=== PATIENT | female | born 1960 | race Caucasian/White ===

== ENCOUNTER → 2024-05-05 | Outpatient (CLI) | payer MEDICARE, SELFPAY ==
--- NOTE | 2024-05-05 13:43 | XR_ITS ---
Examination: Lumbar spine, 5 views Technique: Lumbar spine AP, lateral, coned lateral lower lumbar spine, bilateral obliques 5 views Exam date and time: May 05, 2023 1403 hours INDICATIONS: Low back pain several years radiating down both legs FINDINGS: Adequate alignment lumbar vertebral bodies No lumbar fracture No spondylolisthesis Mild to moderate lumbar disc narrowing, most prominent L2-L3, L5-S1 IMPRESSION: No lumbar fracture Mild to moderate lumbar disc narrowing
== END | disposition home or self-care (01) ==
LOC: CDIM 13:34
PROVIDERS: PCP Internal Medicine; Referring Provider Internal Medicine; Visit Provider Internal Medicine
DX: M48.061 Spinal stenosis, lumbar region without neurogenic claudication (principal)
CPT/HCPCS: 72110

== ENCOUNTER → 2024-11-28 | Outpatient (CLI) | payer MEDICARE, SELFPAY ==
--- NOTE | 2024-11-28 | XR_ITS ---
Examination: Wrist, right 3 views Technique: Wrist AP, oblique, lateral 3 views Date and time of exam: November 28, 2024 1026 hours INDICATIONS: Right wrist pain beginning 20 years ago FINDINGS: Significant osteopenia Fracture No erosive or other significant arthritic change IMPRESSION: No erosive or other significant arthritic change
--- NOTE | 2024-11-28 | XR_ITS ---
Examination: Hand, right 3 views Technique: Hand AP, oblique, lateral 3 views Date and time of exam: November 28, 2024 1126 hours INDICATIONS: Right hand pain third digit locking 20 years FINDINGS: Prominent osteopenia No fracture or dislocation. No erosive or other significant arthritic change IMPRESSION: Prominent osteopenia No erosive or other significant arthritic change
--- NOTE | 2024-11-28 11:30 | XR_ITS ---
Examination: Ultrasound soft tissue extremity left knee TECHNIQUE: Grayscale sonographic images soft tissue left knee Date and time: November 28, 2024 1127 hours INDICATIONS: Posterior knee pain beginning one year ago FINDINGS: No cystic or solid mass soft tissue left knee IMPRESSION: No cystic or solid mass soft tissue left knee
== END | disposition home or self-care (01) ==
PROVIDERS: PCP Internal Medicine; Referring Provider Internal Medicine; Visit Provider Internal Medicine
DX: M25.561 Pain in right knee (principal); M85.841 Other specified disorders of bone density and structure, right hand; M25.531 Pain in right wrist
CPT/HCPCS: 73110; 73130; 76882

== ENCOUNTER 2025-02-17 13:47 | Outpatient (RCR) | payer MEDICARE, SELFPAY ==
--- NOTE | 2025-02-17 14:28 | PT.OIERPT ---
PT OP Initial Eval Patient Information Outpatient Physical Therapy Treatment Date: 02/17/25 Visit Reasons: RT hand surgery Medical Diagnosis: M79.641 Treatment Dx #1: Right Hand Weakness Treatment Dx #2: Right Hand Pain Start of Care: 02/17/25 Date of Onset: 01/03/25 Smoking Status Smoking Status: Never smoker Initial Assessment Subjective: Pt is a 64 y/o female s/p right 1st-5th digit trigger finger release 01/03/25. Pt still has pain (8/10) with activities. Pt has limitation with gripping, lifting, chores, self care, cooking, cleaning, and performing recreational activities. Objective: Right Wrist AROM: all motions are WNL Right 1st-5th Digit AROM: all motions are WFL Right Wrist MMTs: grossly 3+/5 Community Service Worker Strength L: 63 lbs R: 76 lbs Assessment: Pt demonstrate right hand pain and weakness s/p surgery leading to difficulty with ADLs. Pt will benefit from physical therapy to increase ROM, strength, and work on hand dexterity Short Term and Penitentiary Goals 1) Increase right 1st-5th digit AROM WNL in 6 wks to be able to perform chores 2) Increase left director trust strength to 70 lbs in 6 wks to be able to perform gripping activities 3) Decrease hand pain to 2/10 in 6 wks to be able to garden 4) Indep with HEP Treatment Plan 1) Manual Therapy 2) Therapeutic Activities 3) Therapeutic Exercises 4) Modalities (ice, heat) Frequency and Duration: 2 x wk for 6 wks Certification Dates: 02/17/25 to 05/20/25 Procedure Charges OP PT Eval Mod Complex 30 minutes: Yes
== END 2025-02-24 23:59 | disposition home or self-care (01) ==
LOC: CPTX 13:47
PROVIDERS: PCP Family Medicine; Referring Provider Surgery Surgery of the Hand; Visit Provider Surgery Surgery of the Hand
DX: M79.641 Pain in right hand (principal); R53.1 Weakness; Z98.890 Other specified postprocedural states
CPT/HCPCS: 97162

== ENCOUNTER 2025-03-22 13:00 | Outpatient (RCR) | payer MEDICARE, SELFPAY ==
--- NOTE | 2025-03-01 14:13 | PTNOTE_ITS ---
PT Outpatient Daily Note OP Daily Note Outpatient Physical Therapy Treatment Date: 03/01/25 Visit Reasons: RT HAND SURGERY Subjective: Pt's been doing soft tissue on the scar. Pt denies of pain and continues to use the hand as able. Objective: Please see flow chart for list of ther ex performed Assessment: slight sensitivity reported with STM, however able to complete intervention. Cues to pace with hand resistance exercises today and focus on form Plan: Continue with PT Length of Time (minutes) of Treatment: 30 Minutes Procedure Charges Therapeutic Exercise 15 minutes: Yes Manual Power Plant Technician 15 minutes: Yes
--- NOTE | 2025-03-03 15:25 | PT.ODAYNRPT ---
PT Outpatient Daily Note OP Daily Note Outpatient Physical Therapy Treatment Date: 03/03/25 Visit Reasons: RT HAND SURGERY Subjective: Pt's hand is better. Pt likes the massage and continues at home. Objective: Please see flow chart for list of ther ex performed Assessment: tolerate exercises with minimal pain; decrease scar adhesion noted at surgical site Plan: Conitnue with PT Length of Time (minutes) of Treatment: 30 Minutes Procedure Charges Therapeutic Exercise 30 minutes: Yes
--- NOTE | 2025-03-14 15:26 | PT.ODAYNRPT ---
PT Outpatient Daily Note OP Daily Note Outpatient Physical Therapy Treatment Date: 03/14/25 Visit Reasons: RT HAND SURGERY Subjective: Pt's hand feels much better. Pt STM the scar tissue daily. Pt does not have any new concerns. Objective: Please see flow chart for list of ther ex performed Assessment: progress gripper exercise to green with good form noted. Pt encourage STM at home to help with scar adhesion Plan: Continue with PT Length of Time (minutes) of Treatment: 30 Minutes Procedure Charges Therapeutic Exercise 30 minutes: Yes
--- NOTE | 2025-03-16 13:38 | PT.ODAYNRPT ---
PT Outpatient Daily Note OP Daily Note Outpatient Physical Therapy Treatment Date: 03/16/25 Visit Reasons: RT HAND SURGERY Subjective: Pt's hand is better and stronger. Pt continues HEP at home due to fear of locking up. Objective: Please see flow chart for list of ther ex performed Assessment: tolerate exercises with minimal pain; continue to improve with scar adhesion post STM Plan: Continue with PT Length of Time (minutes) of Treatment: 30 Minutes Procedure Charges Therapeutic Exercise 15 minutes: Yes Therapeutic Exercise 30 minutes: Yes
--- NOTE | 2025-03-20 13:55 | PT.ODAYNRPT ---
PT Outpatient Daily Note OP Daily Note Outpatient Physical Therapy Treatment Date: 03/20/25 Visit Reasons: RT HAND SURGERY Subjective: Pt's hand feels much better. Pt does not have concerns. Objective: Please see flow chart for list of ther ex perfomed Assessment: progressing with hand exercises and added putty with good tolerance. Decrease edema noted in the surgical site Plan: Continue with PT Length of Time (minutes) of Treatment: 30 Minutes Procedure Charges Therapeutic Exercise 30 minutes: Yes
--- NOTE | 2025-03-22 15:16 | PTNOTE_ITS ---
PT Outpatient Daily Note OP Daily Note Outpatient Physical Therapy Treatment Date: 03/22/25 Visit Reasons: RT HAND SURGERY Subjective: Pt's hand is better and notice more swelling around the pinky area. Pt has neglect the pinky area and has not massage much. Pt wants to know where to buy theraputty; patient feels it really help address the swelling Objective: Please see flow chart for list of ther ex performed Assessment: decrease edema post STM. Pt continues to progress with hand resistance exercises. Plan: Continue with PT Length of Time (minutes) of Treatment: 30 Minutes Procedure Charges Therapeutic Exercise 15 minutes: Yes Manual Configuration Management Architect 15 minutes: Yes
== END 2025-03-26 23:59 | disposition home or self-care (01) ==
LOC: CPTX 13:00
PROVIDERS: PCP Family Medicine; Referring Provider Family Medicine; Visit Provider Family Medicine
DX: Z47.89 Encounter for other orthopedic aftercare (principal); M79.641 Pain in right hand; R53.1 Weakness; Z98.890 Other specified postprocedural states
CPT/HCPCS: 97110; 97140

== ENCOUNTER 2025-04-25 13:00 | Outpatient (RCR) | payer MEDICARE, SELFPAY ==
--- NOTE | 2025-03-29 15:57 | PT.ODAYNRPT ---
PT Outpatient Daily Note OP Daily Note Outpatient Physical Therapy Treatment Date: 03/29/25 Visit Reasons: RT hand surgery Subjective: Pt's hand is much better. Pt continue to massage at home and seems to help with the swelling around the hand Objective: Please see flow chart for list of ther ex performed Assessment: decrease swelling noted in the surgical site and scar adhesion area. Plan: Continue with PT Length of Time (minutes) of Treatment: 30 Minutes Procedure Charges Therapeutic Exercise 15 minutes: Yes Manual Geospatial Technician 15 minutes: Yes
--- NOTE | 2025-03-31 15:42 | PT.ODAYNRPT ---
PT Outpatient Daily Note OP Daily Note Outpatient Physical Therapy Treatment Date: 03/31/25 Visit Reasons: RT hand surgery Subjective: Pt's hand feels much better. Pt still notice pockets of swelling in the right hand near the pinky. Pt has bought the theraputty for home. Objective: Wet Silk Hanger Strength L: 66 lbs R: 64 lbs Assessment: Pt is progressing with exercises. Pt demonstrate functional strength as measured above. Pt encourage to continue putty exercises and STM at home to reach set goals in therapy. Plan: Continue with PT Length of Time (minutes) of Treatment: 30 Minutes Procedure Charges Therapeutic Exercise 15 minutes: Yes Manual Field Human Resources Manager 15 minutes: Yes
--- NOTE | 2025-04-17 13:41 | PTNOTE_ITS ---
PT Outpatient Daily Note OP Daily Note Outpatient Physical Therapy Treatment Date: 04/17/25 Visit Reasons: RT hand surgery Subjective: Pt has not been working on her hand as much due to sever back pain. Pt has a follow up appt with tomorrow regarding her back. Objective: Please see flow chart for list of ther ex performed Assessment: demonstrate edema lateral aspect of the hand near 5th MCP; post STM helped decrease swelling. Plan: Continue with PT Length of Time (minutes) of Treatment: 30 Minutes Procedure Charges Therapeutic Exercise 15 minutes: Yes Manual Mine Safety Director 15 minutes: Yes
--- NOTE | 2025-04-25 13:36 | PT.ODAYNRPT ---
PT Outpatient Daily Note OP Daily Note Outpatient Physical Therapy Treatment Date: 04/25/25 Visit Reasons: RT hand surgery Subjective: Pt's hand is much better. Pt wants to start training in self defense soon. Pt's back has been hurting and currently seeing a chiropractor for treatment. Objective: Please see flow chart for list of ther ex performed Assessment: decrease swelling noted in the hand today. Pt unable to use sci-fit due to back pain. STM continues to help improve edema in the hamd Plan: Continue with PT Length of Time (minutes) of Treatment: 30 Minutes Procedure Charges Therapeutic Exercise 15 minutes: Yes Manual Commercial Tire Service Technician 15 minutes: Yes
== END 2025-04-26 23:59 | disposition home or self-care (01) ==
LOC: CPTX 13:00
PROVIDERS: PCP Family Medicine; Referring Provider Family Medicine; Visit Provider Family Medicine
DX: M79.641 Pain in right hand (principal); R53.1 Weakness; Z98.890 Other specified postprocedural states
CPT/HCPCS: 97110; 97140